=== PATIENT | female | born 1980 | race African-American/Black ===

== ENCOUNTER 2019-11-17 11:05 | Outpatient (CLI) | payer BC | END 2019-11-17 11:06 | disposition home or self-care (01) | LOC: DTY/OP 11:05 | PROVIDERS: ATTEND Surgery | DX: E66.01 Morbid (severe) obesity due to excess calories (principal) | CPT/HCPCS: 97802 ==

== ENCOUNTER 2020-01-07 14:57 | Outpatient (CLI) | payer BC ==
--- NOTE | 2020-01-07 15:58 | RAD ---
TWO VIEWS CHEST: 01/07/20 PROVIDED CLINICAL HISTORY: Preop. FINDINGS: Comparison . Cardiac and mediastinal silhouette is unchanged in appearance. No focal consolidation, pleural fluid, or pneumothorax apparent. IMPRESSION: No evidence for an acute cardiopulmonary process. POS: SHENG
[2020-01-07 15:59] LABS: #Eosinphils 0.1 10x3/uL (0.0-0.5); #Monocytes 0.4 10x3/uL (0.0-1.1); #Neutrophils 5.5 10x3/uL (1.5-8.4); %Basophils 0.3 % (0.0-2.0); %Eosinophils 1.1 % (0.0-6.0); %Monocytes 4.2 % (0.0-10.0); %Neutrophils 61.2 % (40.0-75.0); Hemoglobin 11.7 g/dL (12.0-16.0); Mean Corpuscular HGB CONC 31.9 G/DL (32.0-36.0); Mean Corpuscular Hemoglobin 26.7 PG (27.0-33.0); Mean Corpuscular Volume 83.6 fl (80.0-100.0); Mean Platelet Volume 10.2 fl (7.4-10.4); Platelet Count 271 10x3/uL (130-400); RBC Distribution Width 13.3 % (11.5-14.5); Red Blood Cell (RBC) Count 4.39 10x6/uL (3.90-5.20)
[2020-01-07 16:06] LABS: BHCG - Serum Negative (NEGATIVE); Pregs Control Background? CLEAR/WHITE (CLR/WHITE); Pregs Control Bar Appear? YES (CONTROL BAR)
[2020-01-07 16:14] LABS: ALT (SGPT) 52 U/L (8-55); AST (SGOT) 26 U/L (5-34); Alkaline Phosphatase 75 U/L (40-110); Anion Gap 15 mmol/L (10-20); BUN (Urea Nitrogen) 8 mg/dL (7.0-18.7); Bilirubin, Total 0.7 mg/dL (0.2-1.2); Calc. Creatinine Clearance 0 mL/min (70-130); Calcium 9.4 mg/dL (7.8-10.44); Carbon Dioxide 23 mmol/L (22-29); Chloride 105 mmol/L (98-107); Estimated GFR-MDRD Greater than 90; Globulin 3.6 g/dL (2.4-3.5); Glucose 91 mg/dL (70-105); Potassium 3.9 mmol/L (3.5-5.1); Protein, Total 7.6 g/dL (6.0-8.3); Sodium 139 mmol/L (136-145)
[2020-01-07 18:01] LABS: Hemoglobin A1c 5.2 % (4.0-6.0)
[2020-01-08 16:11] LABS: SARS-CoV-2 MS2 Positive; SARS-CoV-2 N Gene Negative; SARS-CoV-2 S Gene Negative; SARS-CoV-2 by NAA Not Detected (NotDetected); SARS-CoV-2 orf1ab Negative
== END 2020-01-07 14:58 | disposition home or self-care (01) ==
LOC: LABBT 14:57
PROVIDERS: ATTEND Surgery
DX: Z01.818 Encounter for other preprocedural examination (principal); Z01.812 Encounter for preprocedural laboratory examination; Z20.828 Contact with and (suspected) exposure to other viral communicable diseases; E66.01 Morbid (severe) obesity due to excess calories
CPT/HCPCS: 71046; 80053; 83036; 84703; 85025; 87635; U0003

== ENCOUNTER 2020-01-07 15:00 | Inpatient (IN) | payer BC ==
[2020-01-10 11:46] VITALS: BMI 44.4
[2020-01-11] MEDS ORDERED: Heparin 5,000 UNITS/ML VIAL ONE (06:45)
[2020-01-11] MEDS ORDERED: Bupivacaine 0.25% HCL 30 ML VIAL ONE (06:50)
[2020-01-11] MEDS ORDERED: Lidocaine 1% w/Epinephrine 1:100K 20 ML VIAL ONE (06:50)
[2020-01-11] MEDS ORDERED: Ketorolac Tromethamine 30 MG/ML VIAL ONE (07:03)
[2020-01-11] MEDS ORDERED: Midazolam HCl 2 mg/2 ml Vial ONE (07:05)
[2020-01-11] MEDS ORDERED: Fentanyl 100 MCG/2 ML VIAL ONE ×2 (07:05→09:29)
[2020-01-11] MEDS ORDERED: Ondansetron PF 4 MG/2 ML Vial IVP PRN ×2 (09:22→13:14)
[2020-01-11] MEDS ORDERED: diphenhydrAMINE 50 MG/ML VIAL IM PRN (09:22)
[2020-01-11] MEDS ORDERED: Naloxone HCl 0.4 mg/ml Vial IV PRN (09:22)
[2020-01-11] MEDS ORDERED: Zolpidem Tartrate 5 MG TAB PO PRN (09:22)
[2020-01-11] MEDS ORDERED: Promethazine HCl 25 MG/ML VIAL SLOW IVP PRN (09:22)
[2020-01-11] MEDS ORDERED: Ondansetron HCl/PF 4 MG/2 ML Vial IVP PRN (09:22)
[2020-01-11] MEDS ORDERED: fentaNYL Citrate/PF 2,000 MCG in Sodium Chloride 0.9% 60 ML IV PRN (09:22)
[2020-01-11] MEDS ORDERED: Promethazine HCl 25 MG/ML VIAL IM PRN ×3 (09:22→13:14)
[2020-01-11] MEDS ORDERED: diphenhydrAMINE 50 MG/ML VIAL IVP PRN ×2 (09:22→13:14)
[2020-01-11] MEDS ORDERED: diphenhydrAMINE 25 MG CAP PO PRN (09:22)
[2020-01-11] MEDS ORDERED: Communication Order-Pharmacy FS PRN (09:30)
--- NOTE | 2020-01-11 09:59 | OP ---
DATE OF PROCEDURE: 01/11/2020 PREOPERATIVE DIAGNOSIS: Morbid obesity with a BMI of 45. POSTOPERATIVE DIAGNOSIS: Morbid obesity with a BMI of 45 plus paraesophageal hiatal hernia. PROCEDURES PERFORMED: 1. Laparoscopic sleeve gastrectomy with Ethicon staple line reinforcements and 38-[place] bougie. 2. Paraesophageal laparoscopic hiatal hernia repair without mesh or fundoplication. 3. Esophagogastroduodenoscopy. ANESTHESIA: General. ESTIMATED BLOOD LOSS: Minimal. COMPLICATIONS: None. SPECIMEN: Stomach. FINDINGS: Hiatal hernia. TECHNIQUE: The patient was taken to the operating room and laid supine on the operating room table. After general anesthetic was obtained, the arms and legs were double strapped to bariatric table. The abdomen was prepped and draped in a sterile fashion. Left subcostal 5-mm Optiview trocar was placed in usual fashion. High-flow pneumoperitoneum was obtained. Left and right abdominal 12 mm ports as well as a right subcostal 5-mm port were placed under direct visualization. A 5-mm incision was made at the xiphoid and a Hay was used to raise the liver off the GE junction. Short gastrics were taken from midbody of stomach to left maddie of diaphragm. Left maddie, posterior fundus, and angle of His were completely dissected. There was a hiatal hernia. The short gastrics had been taken down to a distance of 6 cm proximal to the pylorus. Circumferential dissection of the esophagus was performed, bringing the GE junction, found the fundus back into the abdominal cavity. A 38 bougie was brought in its tip left in the antrum of the stomach. Multiple loads of [place] stapling device was used to form the sleeve all with Ethicon staple line reinforcements, first fired up at the distance of 6 cm proximal to the pylorus angled up towards the incisura. Care was taken to avoid being too close to incisura. Multiple loads then fired up along the bougie. Stomach was completely transected at the angle of His. Stomach was removed from the left abdominal incision. This fascial defect was closed using Vicryl needle and a GraNee needle. One Ethibond suture and the Ti-KNOT system were used to close the crural defect posteriorly, the bougie was removed. EGD scope was passed through esophagus, stomach to the level of duodenum without obstruction. No stricture at the incisura. No air leakage through the staple line. All port sites were infiltrated using local anesthetic. All ports were removed under camera visualization. Pneumoperitoneum was let down. Vicryl was used to close the fascial defect from the left abdominal incisions. All incisions were irrigated and closed using 4-0 Monocryl and Dermabond. The patient was sent to Recovery in stable condition. All instrument counts, needle counts, and lap counts were correct. Job ID: [id number]
[2020-01-11] MEDS ORDERED: Promethazine HCl 25 MG/ML VIAL ONE (10:33)
[2020-01-11] MEDS ORDERED: PROPOFOL 200 MG/20 ML VIAL ONE (12:07)
[2020-01-11] MEDS ORDERED: Ondansetron PF 4 MG/2 ML Vial ONE (12:07)
[2020-01-11] MEDS ORDERED: Lidocaine 1% PF 5 ML VIAL ONE (12:07)
[2020-01-11] MEDS ORDERED: Glycopyrrolate 0.2 MG/ML 5 ML SYRINGE ONE (12:07)
[2020-01-11] MEDS ORDERED: Rocuronium Bromide 10 MG/ML (10ML VIAL) ONE (12:07)
[2020-01-11] MEDS ORDERED: Dexamethasone 20 MG/5 ML VIAL ONE (12:07)
[2020-01-11] MEDS ORDERED: Dextrose 50% Abboject 50 ML SYRINGE SLOW IVP PRN (13:14)
[2020-01-11] MEDS ORDERED: Hydrocodone-Acetamin 15 ML UDCUP PO PRN (13:14)
[2020-01-11] MEDS ORDERED: Dextrose 5% in Water 1,000 ML IV PRN (13:14)
[2020-01-11] MEDS ORDERED: hydrALAZINE 20 MG/ML VIAL SLOW IVP PRN (13:14)
[2020-01-11] MEDS ORDERED: Sodium Chloride 0.9% (PF) 10 ML VIAL FS PRN (13:45)
[2020-01-11] MEDS: D5 1/2 NS w/20 mEq KCL 1,000 ML IV SCH ×2 (13:48→20:21)
[2020-01-11] MEDS ORDERED: Pantoprazole 40 MG VIAL IVP SCH (14:00)
[2020-01-11] MEDS ORDERED: FLU VACC QS2020-21(6MOS UP)/PF 60 MCG/0.5 ML SYRINGE IM ONE (16:00)
[2020-01-11] MEDS ORDERED: Enoxaparin Sodium 40 MG/0.4 ML SYRINGE SC SCH (21:00)
[2020-01-12] MEDS: D5 1/2 NS w/20 mEq KCL 1,000 ML IV SCH (03:40)
[2020-01-12 06:31] LABS: #Lymphocytes 2.2 thou/uL (1.20-3.40); #Monocytes 0.6 thou/uL (0.11-0.59); #Neutrophils 8.7 thou/uL (1.40-6.50); %Basophils 0.2 % (0.0-1.0); %Eosinophils 0.1 % (0.0-10.0); %Lymphocytes 19.1 % (21.0-51.0); %Monocytes 4.9 % (0.0-10.0); %Neutrophils 75.7 % (42.0-75.0); Hemoglobin 11.2 g/dL (12.0-16.0); Mean Corpuscular HGB CONC 32.9 g/dL (32.0-36.0); Mean Corpuscular Hemoglobin 27.8 pg (27.0-31.0); Mean Corpuscular Volume 84.7 fL (78.0-98.0); Platelet Count 257 thou/uL (130-400); RBC Distribution Width 12.9 % (11.5-14.5); Red Blood Cell (RBC) Count 4.03 mill/uL (4.20-5.40); White Blood Cell (WBC) Count 11.4 thou/uL (4.8-10.8)
[2020-01-12 06:53] LABS: Anion Gap 14 mmol/L (10-20); BUN (Urea Nitrogen) Less than 4 mg/dL (7.0-18.7); Calc. Creatinine Clearance 191 mL/min (70-130); Calcium 8.8 mg/dL (7.8-10.44); Carbon Dioxide 21 mmol/L (22-29); Chloride 107 mmol/L (98-107); Estimated GFR-MDRD Greater than 90; Glucose 129 mg/dL (70-105); Potassium 3.7 mmol/L (3.5-5.1); Sodium 138 mmol/L (136-145)
[2020-01-12] MEDS ORDERED: Pantoprazole 40 MG VIAL IVP SCH (09:00)
--- NOTE | 2020-01-12 11:17 | DIS ---
DATE OF ADMISSION: 01/11/2020 DATE OF DISCHARGE: 01/12/2020 ADMIT DIAGNOSIS: Morbid obesity. DISCHARGE DIAGNOSIS: Morbid obesity. PROCEDURE PERFORMED: Laparoscopic sleeve gastrectomy by Dr. Robbins without complication. CONDITION ON DISCHARGE: Improved. STAFF: Yousuf Robbins MD HOSPITAL COURSE: On postoperative day #1, the patient is tolerating a clear liquid diet without difficulty. Her pain was controlled. She is ambulatory. She was discharged to home. Prescriptions for Lortab Elixir, Zofran, and pantoprazole, already sent to her pharmacy. She will follow up with me in 2 weeks. She has my cellphone number to text me if she has any questions or concerns. Job ID: [id number]
[2020-01-12 12:45] VITALS: BP 145/83; TEMP 98.2
== END 2020-01-12 13:10 | disposition home or self-care (01) | DRG 621 ==
LOC: SURG A 01-11 06:25 → SJJU 01-11 13:16
PROVIDERS: ADMIT Surgery; ATTEND Surgery
PROC: 0DB64Z3 Excision of Stomach, Percutaneous Endoscopic Approach, Vertical (ICD-10-PCS; principal; 2020-01-11)
PROC: 0BQT4ZZ Repair Diaphragm, Percutaneous Endoscopic Approach (ICD-10-PCS; 2020-01-11)
PROC: 0DJ08ZZ Inspection of Upper Intestinal Tract, Via Natural or Artificial Opening Endoscopic (ICD-10-PCS; 2020-01-11)
DX: E66.01 Morbid (severe) obesity due to excess calories (principal); K44.9 Diaphragmatic hernia without obstruction or gangrene; Z68.41 Body mass index [BMI] 40.0-44.9, adult; Z90.49 Acquired absence of other specified parts of digestive tract
CPT/HCPCS: 36415; 80048; 85025; 88307; 88312; C9113; J0690; J1100; J1644; J1650; J1885; J2250; J2405; J2550; J2704; J3010; J3480; S0020

== ENCOUNTER 2020-01-17 12:42 | Day surgery (SDC) | payer BC ==
[2020-01-17] MEDS ORDERED: Ondansetron PF 4 MG/2 ML Vial IVP PRN (12:52)
[2020-01-17] MEDS ORDERED: Sodium Chloride 0.9% 1,000 ML IV SCH (13:00)
[2020-01-17] MEDS ORDERED: Multivitamins, Adult 10 ML, Thiamine HCl 100 MG in Sodium Chloride 0.9% 1,000 ML IV SCH (14:00)
[2020-01-17 15:37] VITALS: BP 119/64; TEMP 98.1
== END 2020-01-17 16:45 | disposition home or self-care (01) ==
LOC: ONC/OP 12:42
PROVIDERS: ATTEND Surgery
DX: E86.0 Dehydration (principal)
CPT/HCPCS: 96361; 96365; 96366; J3411; J7050